=== PATIENT | male | born 1990 | race Caucasian/White ===

== ENCOUNTER 2017-05-30 18:24 | Emergency (ER) | payer OTHER ==
[~2017-05-30] VITALS: Ht 193 cm; Wt 74.7 kg
[2017-05-30 19:20] LABS: HEMATOCRIT 42.8 % (38.0-50.0); HEMOGLOBIN 15.3 G/DL (12.5-16.6); MCH 31.2 PG (29.0-34.0); MCHC 35.7 G/DL (30.0-36.0); MCV 87.2 FL (86-99); PLATELET COUNT 112 K/uL (156-360); RBC DIS.WIDTH-CV 11.5 % (11.8-14.6); RBC DIS.WIDTH-SD 37.1 % (39-53); RED BLOOD COUNT 4.91 M/uL (4.00-5.50); WHITE BLOOD COUNT 5.3 K/uL (4.1-10.2)
[2017-05-30 19:28] LABS: CHLORIDE 103 mEq/L (99-109); POTASSIUM 3.5 mEq/L (3.7-5.4); SODIUM 137 mEq/L (136-147)
[2017-05-30 19:29] LABS: GLUCOSE 110 mg/dL (70-99)
[2017-05-30 19:33] LABS: CREATININE 1.1 mg/dL (0.6-1.3)
[2017-05-30 19:34] LABS: UREA NITROGEN (BUN) 11 mg/dL (9-23)
[2017-05-30 19:41] LABS: GFR ESTIMATE (CALCULATED) > 59 mL/min/ (58.99-99999)
[2017-05-30] MEDS ORDERED: REGLAN10 MG PO (20:48)
[2017-05-30] MEDS ORDERED: MOTRIN600 MG PO (20:48)
[2017-05-30 21:00] VITALS: BP 109/47
== END 2017-05-30 21:01 | disposition home or self-care (01) ==
LOC: EME 18:24
PROVIDERS: Physician Assistant
DX: B34.9 Viral infection, unspecified (principal); R51 Headache
CPT/HCPCS: 80048; 85027; 87502; 99281; 99284; J1885; J2765; J7030